=== PATIENT | male | born 1950 | race Hispanic/Latino ===

== ENCOUNTER 2017-10-12 13:13 | Inpatient (IN) | payer MEDICARE, OTHER ==
[~2017-10-12] VITALS: Ht 167.6 cm; Wt 83.9 kg
[2017-10-12 13:31] LABS: BASOPHILS % (AUTO) 0.2 % (0.0-5.0); EOSINOPHILS % (AUTO) 0.1 % (0.0-8.0); HEMATOCRIT 43.9 % (42-54); LYMPHOCYTES % (AUTO) 4.9 % (21.0-51.0); MEAN CORPUSCULAR HEMOGLOBIN 31.8 pg (27.0-33.0); MEAN CORPUSCULAR VOLUME 93.6 fL (79-99); MONOCYTES % (AUTO) 1.1 % (3.0-13.0); NEUTROPHILS % (AUTO) 93.7 % (40.0-77.0); PLATELET COUNT (AUTO) 484 K/uL (130-400); RED BLOOD CELL COUNT(AUTO) 4.69 MIL/uL (4.50-6.20); RED CELL DISTRIBUTION WIDTH 13.3 % (11.0-15.5); WHITE BLOOD COUNT (AUTO) 24.8 K/uL (4.8-10.8)
[2017-10-12 13:40] LABS: CARBON DIOXIDE 27 mmol/L (21-32); CHLORIDE 98 mmol/L (101-111); CREATININE 0.6 mg/dL (0.5-1.5); GLOMERULAR FILTR. RATE CALC 143 mL/min (>60); GLUCOSE,RANDOM 246 mg/dL (70-105); POTASSIUM 4.7 mmol/L (3.5-5.1); SODIUM SERUM 132 mmol/L (136-145); UREA NITROGEN, BLOOD 18 mg/dL (7-18)
[2017-10-12 14:16] LABS: ALANINE AMINOTRANSFERASE 282 U/L (12-78); ALBUMIN 2.4 g/dL (3.5-5.0); ASPARTATE AMINOTRANSFERASE 168 U/L (10-37); BILIRUBIN,TOTAL 0.5 mg/dL (0.2-1.0); CREATINE KINASE MB 267.3 ng/mL (0.5-3.6); MYOGLOBIN 3817 ng/mL (10-92); TOTAL PROTEIN, SERUM 7.5 g/dL (6.0-8.3); TROPONIN I < 0.04 ng/mL (0.00-0.06)
[2017-10-12 14:17] LABS: CREATINE KINASE, TOTAL 4238 U/L (21-232)
[2017-10-12] MEDS ORDERED: CEFTRIAXONE SODIUM 2 GM VIAL ONE ×2 (14:47→14:50)
[2017-10-12] MEDS ORDERED: SODIUM CHLORIDE 0.9% 100 ML IV ONE ×2 (14:47→14:50)
[2017-10-12 15:21] LABS: APPEARANCE,URINE Cloudy (CLEAR); BILIRUBIN,URINE Negative (NEGATIVE); COLOR,URINE Dark Yellow (YELLOW); GLUCOSE, URINE (UA) TRACE mg/dL (NEGATIVE); KETONES,URINE Trace mg/dL (NEGATIVE); LEUKOCYTE ESTERASE ,URINE Negative (NEGATIVE); NITRATE,URINE Negative (NEGATIVE); OCCULT BLOOD,URINE Moderate (NEGATIVE); PROTEIN,URINE POS 1+ (NEGATIVE)
[2017-10-12 15:26] LABS: INR 1.04 (0.85-1.15); PROTHROMBIN TIME 10.7 SEC (9.6-11.6)
[2017-10-12 15:44] LABS: BACTERIA,URINE Few /HPF (None Seen); CALCIUM OXALATE CRYSTALS,UR Few /LPF (None Seen); MUCUS,URINE Rare LPF (None Seen); RBC,URINE None Seen /HPF (0-1); WBC,URINE 0-1 /HPF (0-1)
[2017-10-12 17:30] VITALS: BP 128/67
[2017-10-12] MEDS ORDERED: FLUT16H NS (17:49)
[2017-10-12] MEDS ORDERED: DOCU100C33 PO (17:49)
[2017-10-12] MEDS ORDERED: FISH1CAP20 PO (17:49)
[2017-10-12] MEDS ORDERED: ATOR40TA69 PO (17:49)
[2017-10-12] MEDS ORDERED: CHOL100018 PO (17:49)
[2017-10-12] MEDS ORDERED: TAMS0.4C32 PO (17:49)
[2017-10-12] MEDS ORDERED: TICA90TA PO (17:49)
[2017-10-12] MEDS ORDERED: LACT10SO8 PO (17:49)
[2017-10-12] MEDS ORDERED: OMEP20CA10 PO (17:49)
[2017-10-12] MEDS ORDERED: METF10004 PO (17:49)
[2017-10-12] MEDS ORDERED: RAMI5CAP21 PO (17:49)
[2017-10-12] MEDS ORDERED: INSU100V12 SQ (17:49)
[2017-10-12] MEDS ORDERED: CLOT15CR62 TP (17:49)
[2017-10-12] MEDS ORDERED: POTASSIUM CHLORIDE 10% ELIXIR 20 MEQ/15 ML UDCUP PO PRN (19:30)
[2017-10-12] MEDS ORDERED: POTASSIUM CHLORIDE 20MEQ/100ML 100 ML IV PRN (19:30)
[2017-10-12] MEDS ORDERED: ONDANSETRON HCL MDV 20ML 2 MG/ML VIAL IVP PRN (19:30)
[2017-10-12] MEDS ORDERED: LIDOCAINE HCL-MPF 1% 2ML VIAL IJ PRN (19:30)
[2017-10-12] MEDS ORDERED: POTASSIUM CHLORIDE 20 MEQ ERTAB PO PRN (19:30)
[2017-10-12] MEDS ORDERED: ACETAMINOPHEN 325 MG TAB PO PRN ×2 (19:30)
[2017-10-12 19:55] VITALS: BP 112/51
[2017-10-12] MEDS: DOXYCYCLINE 100MG+NS 250ML 250 ML IV SCH (22:45)
[2017-10-12] MEDS ORDERED: LACTULOSE 20 GM/30 ML UDCUP PO PRN (23:00)
[2017-10-12 23:27] VITALS: BP 119/60
[2017-10-12] MEDS: ZOLPIDEM TARTRATE 5 MG TAB PO PRN (23:28)
[2017-10-13 03:15] VITALS: BP 130/66
[2017-10-13 05:35] LABS: HEMATOCRIT 39.5 % (42-54); MEAN CORPUSCULAR HEMOGLOBIN 31.7 pg (27.0-33.0); MEAN CORPUSCULAR HGB CONC 34.1 g/dL (32.0-36.0); MEAN CORPUSCULAR VOLUME 93.2 fL (79-99); PLATELET COUNT (AUTO) 493 K/uL (130-400); RED BLOOD CELL COUNT(AUTO) 4.24 MIL/uL (4.50-6.20); RED CELL DISTRIBUTION WIDTH 13.3 % (11.0-15.5); WHITE BLOOD COUNT (AUTO) 22.1 K/uL (4.8-10.8)
[2017-10-13 05:42] LABS: BAND NEUTROPHILS % (MANUAL) 5 % (0-2); EOSINOPHILS % (MANUAL) 1 % (1-6); LYMPHOCYTES % (MANUAL) 5 % (22-44); MAN.DIFF COMMENT-IMPRESSION MANUAL DIFFERENTIAL; METAMYELOCYTES % 1 % (0-0); MONOCYTES % (MANUAL) 3 % (2-9); SEGMENTED NEUTROPHILS % 85 % (40-70)
[2017-10-13 05:43] LABS: PLATELET MORPHOLOGY COMMENT SLIGHT INCREASED
[2017-10-13 06:05] LABS: CREATININE 0.6 mg/dL (0.5-1.5); POTASSIUM 4.2 mmol/L (3.5-5.1)
[2017-10-13 08:03] VITALS: BP 142/79
[2017-10-13] MEDS: SODIUM CHLORIDE 0.9% 1000ML 1,000 ML IV SCH ×4 (08:14→23:30)
[2017-10-13] MEDS ORDERED: NITROGLYCERIN 0.4 MG SL TAB SL PRN (09:30)
[2017-10-13] MEDS ORDERED: ACETAMINOPHEN-CODEINE 300/30MG TAB PO PRN (09:30)
[2017-10-13] MEDS ORDERED: ACETAMINOPHEN 325 MG TAB PO PRN ×2 (09:30)
[2017-10-13] MEDS ORDERED: GUAIFENESIN-DM 200/20 MG 10 ML PO PRN (09:30)
[2017-10-13] MEDS ORDERED: ONDANSETRON HCL 4 MG/2 ML VIAL IV PRN (09:30)
[2017-10-13] MEDS ORDERED: MORPHINE SULFATE 2 MG/ML 1ML SYG IV PRN (09:30)
[2017-10-13] MEDS ORDERED: MAG HYDROX/AL HYDROX/SIMETH ES 30 ML SUSP UDCUP PO PRN (09:30)
[2017-10-13 09:44] LABS: RETICULOCYTE % (AUTO) 0.84 % (0.42-2.23)
[2017-10-13] MEDS: DOXYCYCLINE 100MG+NS 250ML 250 ML IV SCH ×2 (09:59→23:31)
[2017-10-13 10:04] LABS: THYROID STIMULATING HORMONE 1.91 uIU/mL (0.36-3.74)
[2017-10-13 10:22] LABS: % IRON SATURATION 25.8 % (30-44)
[2017-10-13 11:36] VITALS: BP 125/65
[2017-10-13] MEDS ORDERED: DEXTROSE 50%-WATER 50 ML DISP.SYRIN IV PRN (12:00)
[2017-10-13] MEDS ORDERED: GLUCAGON 1MG KIT 1 MG ML IM PRN (12:00)
[2017-10-13] MEDS: FLUTICASONE PROPIONATE 50MCG/SPRAY 16 GM BOTTLE NS SCH (12:21)
[2017-10-13] MEDS: INSULIN HUMULIN R 100 UNIT/ML 3ML SQ SCH ×3 (12:27→21:00)
[2017-10-13 16:00] VITALS: BP 124/70
[2017-10-13] MEDS ORDERED: INSULIN HUMULIN R 100 UNIT/ML 3ML SQ SCH (16:30)
[2017-10-13] MEDS: TICAGRELOR 90 MG TABLET PO SCH (19:59)
[2017-10-13] MEDS: DOCUSATE SODIUM 100 MG CAP PO SCH (19:59)
[2017-10-13] MEDS: FAMOTIDINE 20MG TAB 20 MG TAB PO SCH (19:59)
[2017-10-13 20:00] VITALS: BP 122/68
[2017-10-13 23:55] VITALS: BP 150/75
[2017-10-14 04:00] VITALS: BP 140/78
[2017-10-14 05:24] LABS: MEAN CORPUSCULAR HEMOGLOBIN 32.3 pg (27.0-33.0); MEAN CORPUSCULAR HGB CONC 34.7 g/dL (32.0-36.0); PLATELET COUNT (AUTO) 506 K/uL (130-400); RED BLOOD CELL COUNT(AUTO) 4.08 MIL/uL (4.50-6.20); RED CELL DISTRIBUTION WIDTH 13.4 % (11.0-15.5); WHITE BLOOD COUNT (AUTO) 22.6 K/uL (4.8-10.8)
[2017-10-14 05:44] LABS: BAND NEUTROPHILS % (MANUAL) 4 % (0-2); LYMPHOCYTES % (MANUAL) 4 % (22-44); MONOCYTES % (MANUAL) 1 % (2-9); SEGMENTED NEUTROPHILS % 91 % (40-70)
[2017-10-14 05:45] LABS: MAN.DIFF COMMENT-IMPRESSION MANUAL DIFFERENTIAL; PLATELET MORPHOLOGY COMMENT SLIGHT INCREASED
[2017-10-14 05:54] LABS: ALBUMIN 1.8 g/dL (3.5-5.0); BILIRUBIN,TOTAL 0.5 mg/dL (0.2-1.0); CREATININE 0.4 mg/dL (0.5-1.5); POTASSIUM 3.7 mmol/L (3.5-5.1); TOTAL PROTEIN, SERUM 5.8 g/dL (6.0-8.3)
[2017-10-14] MEDS: INSULIN HUMULIN R 100 UNIT/ML 3ML SQ SCH ×4 (06:37→21:08)
[2017-10-14 07:58] VITALS: BP 118/57
[2017-10-14 08:19] LABS: HEPATITIS A ANTIBODY IGM Negative (Negative); HEPATITIS B CORE IGM Negative (Negative); HEPATITIS Bs ANTIGEN SCREEN P Negative (Negative)
[2017-10-14] MEDS: FAMOTIDINE 20MG TAB 20 MG TAB PO SCH ×2 (08:42→21:00)
[2017-10-14] MEDS: FLUTICASONE PROPIONATE 50MCG/SPRAY 16 GM BOTTLE NS SCH (08:43)
[2017-10-14] MEDS: LISINOPRIL 20 MG TABLET PO SCH (08:43)
[2017-10-14] MEDS: DOCUSATE SODIUM 100 MG CAP PO SCH ×2 (08:43→21:00)
[2017-10-14] MEDS ORDERED: FLUTICASONE PROPIONATE 50MCG/SPRAY 16 GM BOTTLE NS SCH (09:00)
[2017-10-14] MEDS: TICAGRELOR 90 MG TABLET PO SCH (09:00)
[2017-10-14] MEDS: FISH OIL 1000 MG/CAP PO SCH (09:02)
[2017-10-14] MEDS: TAMSULOSIN HCL 0.4 MG CAP.ER.24H PO SCH (09:02)
[2017-10-14] MEDS: DOXYCYCLINE 100MG+NS 250ML 250 ML IV SCH ×2 (09:02→21:00)
[2017-10-14] MEDS: INSULIN GLARGINE 100 UNITS/ML 10 ML VIAL SQ SCH (09:10)
[2017-10-14] MEDS ORDERED: METHYLPREDNISOLONE SOD SUCC 125MG/2ML VIAL IVP SCH ×2 (11:00→18:00)
[2017-10-14] MEDS: SODIUM CHLORIDE 0.9% 1000ML 1,000 ML IV SCH ×2 (11:38→15:29)
[2017-10-14 11:50] VITALS: BP 128/77
[2017-10-14 16:35] VITALS: BP 130/74
[2017-10-14 20:00] VITALS: BP 142/82
[2017-10-14] MEDS: METHYLPREDNISOLONE SOD SUCC 125MG/2ML VIAL IVP SCH (23:39)
[2017-10-14 23:51] VITALS: BP 128/74
[2017-10-15 04:00] VITALS: BP 146/86
[2017-10-15 05:03] LABS: HEMATOCRIT 41.2 % (42-54); MEAN CORPUSCULAR HEMOGLOBIN 31.5 pg (27.0-33.0); MEAN CORPUSCULAR HGB CONC 33.9 g/dL (32.0-36.0); MEAN CORPUSCULAR VOLUME 92.6 fL (79-99); PLATELET COUNT (AUTO) 534 K/uL (130-400); RED BLOOD CELL COUNT(AUTO) 4.45 MIL/uL (4.50-6.20); RED CELL DISTRIBUTION WIDTH 13.3 % (11.0-15.5); WHITE BLOOD COUNT (AUTO) 17.8 K/uL (4.8-10.8)
[2017-10-15 05:30] LABS: CREATININE 0.5 mg/dL (0.5-1.5); POTASSIUM 4.2 mmol/L (3.5-5.1)
[2017-10-15] MEDS: METHYLPREDNISOLONE SOD SUCC 125MG/2ML VIAL IVP SCH ×4 (05:33→23:21)
[2017-10-15] MEDS: INSULIN HUMULIN R 100 UNIT/ML 3ML SQ SCH ×4 (05:40→20:13)
[2017-10-15 07:30] VITALS: BP 143/75
[2017-10-15] MEDS: LISINOPRIL 20 MG TABLET PO SCH ×2 (09:00→12:16)
[2017-10-15] MEDS: FISH OIL 1000 MG/CAP PO SCH ×2 (09:00→12:15)
[2017-10-15] MEDS: TAMSULOSIN HCL 0.4 MG CAP.ER.24H PO SCH ×2 (09:00→12:16)
[2017-10-15] MEDS: FAMOTIDINE 20MG TAB 20 MG TAB PO SCH ×3 (09:00→20:38)
[2017-10-15] MEDS: DOCUSATE SODIUM 100 MG CAP PO SCH ×3 (09:00→20:38)
[2017-10-15] MEDS: DOXYCYCLINE 100MG+NS 250ML 250 ML IV SCH ×2 (09:50→22:41)
[2017-10-15] MEDS: INSULIN GLARGINE 100 UNITS/ML 10 ML VIAL SQ SCH (09:55)
[2017-10-15] MEDS: FLUTICASONE PROPIONATE 50MCG/SPRAY 16 GM BOTTLE NS SCH (09:56)
[2017-10-15 11:00] VITALS: BP 149/79
[2017-10-15 16:00] VITALS: BP 153/74
[2017-10-15 19:44] VITALS: BP 142/81
[2017-10-15] MEDS: ZOLPIDEM TARTRATE 5 MG TAB PO PRN (20:41)
[2017-10-15] MEDS: SODIUM CHLORIDE 0.9% 1000ML 1,000 ML IV SCH (20:42)
[2017-10-15 23:45] VITALS: BP 140/73
[2017-10-16 04:00] VITALS: BP 144/78
[2017-10-16] MEDS: SODIUM CHLORIDE 0.9% 1000ML 1,000 ML IV SCH ×2 (05:38→22:57)
[2017-10-16] MEDS: INSULIN HUMULIN R 100 UNIT/ML 3ML SQ SCH ×4 (05:51→20:53)
[2017-10-16 06:02] LABS: HEMATOCRIT 42.6 % (42-54); MEAN CORPUSCULAR HEMOGLOBIN 31.5 pg (27.0-33.0); MEAN CORPUSCULAR VOLUME 92.8 fL (79-99); PLATELET COUNT (AUTO) 568 K/uL (130-400); RED BLOOD CELL COUNT(AUTO) 4.59 MIL/uL (4.50-6.20); RED CELL DISTRIBUTION WIDTH 13.4 % (11.0-15.5); WHITE BLOOD COUNT (AUTO) 18.6 K/uL (4.8-10.8)
[2017-10-16] MEDS: METHYLPREDNISOLONE SOD SUCC 125MG/2ML VIAL IVP SCH ×4 (06:03→23:23)
[2017-10-16 06:47] LABS: CREATININE 0.4 mg/dL (0.5-1.5); POTASSIUM 4.1 mmol/L (3.5-5.1)
[2017-10-16 08:00] VITALS: BP 143/86
[2017-10-16] MEDS: INSULIN GLARGINE 100 UNITS/ML 10 ML VIAL SQ SCH (08:50)
[2017-10-16] MEDS: DOCUSATE SODIUM 100 MG CAP PO SCH ×2 (08:56→20:52)
[2017-10-16] MEDS: TAMSULOSIN HCL 0.4 MG CAP.ER.24H PO SCH (08:56)
[2017-10-16] MEDS: LISINOPRIL 20 MG TABLET PO SCH (08:56)
[2017-10-16] MEDS: FLUTICASONE PROPIONATE 50MCG/SPRAY 16 GM BOTTLE NS SCH (08:56)
[2017-10-16] MEDS: FAMOTIDINE 20MG TAB 20 MG TAB PO SCH ×2 (08:56→20:52)
[2017-10-16] MEDS: FISH OIL 1000 MG/CAP PO SCH (08:56)
[2017-10-16] MEDS: LACTULOSE 20 GM/30 ML UDCUP PO PRN (08:59)
[2017-10-16 11:49] VITALS: BP 136/76
[2017-10-16] MEDS: DOXYCYCLINE 100MG+NS 250ML 250 ML IV SCH ×2 (11:58→22:56)
[2017-10-16 16:00] VITALS: BP 147/86
[2017-10-16 20:00] VITALS: BP 160/80
[2017-10-16 23:40] VITALS: BP 164/95
[2017-10-16] MEDS: HYDRALAZINE HCL 20 MG/ML VIAL IV PRN (23:40)
[2017-10-17 04:00] VITALS: BP 144/81
[2017-10-17] MEDS: METHYLPREDNISOLONE SOD SUCC 125MG/2ML VIAL IVP SCH ×4 (05:38→22:47)
[2017-10-17 06:16] LABS: ALBUMIN 1.8 g/dL (3.5-5.0); BILIRUBIN,TOTAL 0.2 mg/dL (0.2-1.0); CREATININE 0.4 mg/dL (0.5-1.5); HIGH SENSITIVITY CRP 21.12 mg/L (0.0-3.0); POTASSIUM 3.7 mmol/L (3.5-5.1); TOTAL PROTEIN, SERUM 5.7 g/dL (6.0-8.3)
[2017-10-17] MEDS: INSULIN HUMULIN R 100 UNIT/ML 3ML SQ SCH ×4 (06:32→21:56)
[2017-10-17 07:00] VITALS: BP 147/82
[2017-10-17] MEDS: TICAGRELOR 90 MG TABLET PO SCH (09:00)
[2017-10-17] MEDS: DOCUSATE SODIUM 100 MG CAP PO SCH ×2 (10:12→21:58)
[2017-10-17] MEDS: LISINOPRIL 20 MG TABLET PO SCH (10:12)
[2017-10-17] MEDS: FLUTICASONE PROPIONATE 50MCG/SPRAY 16 GM BOTTLE NS SCH (10:12)
[2017-10-17] MEDS: FAMOTIDINE 20MG TAB 20 MG TAB PO SCH ×2 (10:12→21:58)
[2017-10-17] MEDS: TAMSULOSIN HCL 0.4 MG CAP.ER.24H PO SCH (10:12)
[2017-10-17] MEDS: FISH OIL 1000 MG/CAP PO SCH (10:12)
[2017-10-17] MEDS: INSULIN GLARGINE 100 UNITS/ML 10 ML VIAL SQ SCH (10:13)
[2017-10-17] MEDS: DOXYCYCLINE 100MG+NS 250ML 250 ML IV SCH ×2 (10:14→21:59)
[2017-10-17 11:00] VITALS: BP 142/79
[2017-10-17] MEDS: SODIUM CHLORIDE 0.9% 1000ML 1,000 ML IV SCH (12:00)
[2017-10-17 16:00] VITALS: BP 147/93
[2017-10-17 19:40] VITALS: BP 150/82
[2017-10-17 23:55] VITALS: BP 157/87
[2017-10-18] VITALS (18 sets, daily range): BP systolic 142–178; BP diastolic 77–99
[2017-10-18] MEDS: SODIUM CHLORIDE 0.9% 1000ML 1,000 ML IV SCH ×2 (02:10→10:54)
[2017-10-18] MEDS: METHYLPREDNISOLONE SOD SUCC 125MG/2ML VIAL IVP SCH ×4 (06:13→22:23)
[2017-10-18] MEDS: INSULIN HUMULIN R 100 UNIT/ML 3ML SQ SCH ×4 (06:14→21:00)
[2017-10-18] MEDS: INSULIN GLARGINE 100 UNITS/ML 10 ML VIAL SQ SCH (08:00)
[2017-10-18] MEDS: LISINOPRIL 20 MG TABLET PO SCH (09:00)
[2017-10-18] MEDS: FAMOTIDINE 20MG TAB 20 MG TAB PO SCH ×2 (09:00→21:10)
[2017-10-18] MEDS: DOCUSATE SODIUM 100 MG CAP PO SCH ×2 (09:00→21:10)
[2017-10-18] MEDS: TAMSULOSIN HCL 0.4 MG CAP.ER.24H PO SCH (09:00)
[2017-10-18] MEDS: FISH OIL 1000 MG/CAP PO SCH (09:00)
[2017-10-18] MEDS: DOXYCYCLINE 100MG+NS 250ML 250 ML IV SCH ×2 (11:06→21:10)
[2017-10-18] MEDS ORDERED: PROPOFOL 10 MG/ML 20ML VIAL IV ONE (11:19)
[2017-10-18] MEDS ORDERED: FENTANYL CITRATE PF 50 MCG/1 ML 2ML VIAL ONE (11:21)
[2017-10-18] MEDS ORDERED: LIDOCAINE HCL 1% 20 ML VIAL ONE (11:32)
[2017-10-18] MEDS ORDERED: BUPIVACAINE/PF 0.25% 30ML VIAL IJ ONE (11:32)
[2017-10-18 13:24] LABS: HEMATOCRIT 44.6 % (42-54); MEAN CORPUSCULAR HGB CONC 34.4 g/dL (32.0-36.0); MEAN CORPUSCULAR VOLUME 93.1 fL (79-99); PLATELET COUNT (AUTO) 557 K/uL (130-400); RED CELL DISTRIBUTION WIDTH 13.5 % (11.0-15.5); WHITE BLOOD COUNT (AUTO) 16.1 K/uL (4.8-10.8)
[2017-10-18] MEDS: FLUTICASONE PROPIONATE 50MCG/SPRAY 16 GM BOTTLE NS SCH (17:03)
[2017-10-19 04:05] VITALS: BP 148/81
[2017-10-19] MEDS: METHYLPREDNISOLONE SOD SUCC 125MG/2ML VIAL IVP SCH ×4 (05:21→23:50)
[2017-10-19] MEDS: INSULIN HUMULIN R 100 UNIT/ML 3ML SQ SCH ×4 (06:35→21:27)
[2017-10-19 09:17] VITALS: BP 149/87
[2017-10-19 12:13] VITALS: BP 137/80
[2017-10-19] MEDS: TAMSULOSIN HCL 0.4 MG CAP.ER.24H PO SCH (13:22)
[2017-10-19] MEDS: DOXYCYCLINE 100MG+NS 250ML 250 ML IV SCH ×2 (13:22→23:50)
[2017-10-19] MEDS: FISH OIL 1000 MG/CAP PO SCH (13:22)
[2017-10-19] MEDS: DOCUSATE SODIUM 100 MG CAP PO SCH ×2 (13:22→21:25)
[2017-10-19] MEDS: FLUTICASONE PROPIONATE 50MCG/SPRAY 16 GM BOTTLE NS SCH (13:23)
[2017-10-19] MEDS: LISINOPRIL 20 MG TABLET PO SCH (13:23)
[2017-10-19] MEDS: FAMOTIDINE 20MG TAB 20 MG TAB PO SCH ×2 (13:23→21:25)
[2017-10-19] MEDS: INSULIN GLARGINE 100 UNITS/ML 10 ML VIAL SQ SCH (13:29)
[2017-10-19 16:00] VITALS: BP 139/82
[2017-10-19 20:00] VITALS: BP 138/73
[2017-10-19] MEDS: TICAGRELOR 90 MG TABLET PO SCH (22:54)
[2017-10-20] VITALS (7 sets, daily range): BP systolic 113–157; BP diastolic 62–96
[2017-10-20] MEDS: METHYLPREDNISOLONE SOD SUCC 125MG/2ML VIAL IVP SCH ×4 (06:09→22:51)
[2017-10-20] MEDS: INSULIN HUMULIN R 100 UNIT/ML 3ML SQ SCH ×4 (07:55→23:14)
[2017-10-20] MEDS: FLUTICASONE PROPIONATE 50MCG/SPRAY 16 GM BOTTLE NS SCH (09:00)
[2017-10-20] MEDS: INSULIN GLARGINE 100 UNITS/ML 10 ML VIAL SQ SCH (09:32)
[2017-10-20] MEDS: FISH OIL 1000 MG/CAP PO SCH (10:27)
[2017-10-20] MEDS: DOCUSATE SODIUM 100 MG CAP PO SCH ×2 (10:27→20:25)
[2017-10-20] MEDS: TAMSULOSIN HCL 0.4 MG CAP.ER.24H PO SCH (10:27)
[2017-10-20] MEDS: LISINOPRIL 20 MG TABLET PO SCH (10:27)
[2017-10-20] MEDS: FAMOTIDINE 20MG TAB 20 MG TAB PO SCH ×2 (10:27→20:25)
[2017-10-20] MEDS: TICAGRELOR 90 MG TABLET PO SCH ×2 (10:27→20:25)
[2017-10-20] MEDS: DOXYCYCLINE 100MG+NS 250ML 250 ML IV SCH ×2 (11:27→22:51)
[2017-10-20 11:40] LABS: CREATININE 0.6 mg/dL (0.5-1.5); POTASSIUM 4.2 mmol/L (3.5-5.1)
[2017-10-20] MEDS: LACTULOSE 20 GM/30 ML UDCUP PO PRN (20:25)
[2017-10-21 04:00] VITALS: BP 144/78
[2017-10-21] MEDS: INSULIN HUMULIN R 100 UNIT/ML 3ML SQ SCH ×4 (06:02→23:46)
[2017-10-21] MEDS: METHYLPREDNISOLONE SOD SUCC 125MG/2ML VIAL IVP SCH ×3 (07:22→17:23)
[2017-10-21 08:35] VITALS: BP 133/59
[2017-10-21] MEDS: INSULIN GLARGINE 100 UNITS/ML 10 ML VIAL SQ SCH (08:43)
[2017-10-21] MEDS: FAMOTIDINE 20MG TAB 20 MG TAB PO SCH ×2 (09:00→21:51)
[2017-10-21] MEDS: FLUTICASONE PROPIONATE 50MCG/SPRAY 16 GM BOTTLE NS SCH (09:00)
[2017-10-21] MEDS: TAMSULOSIN HCL 0.4 MG CAP.ER.24H PO SCH (09:01)
[2017-10-21] MEDS: DOCUSATE SODIUM 100 MG CAP PO SCH ×2 (09:01→21:51)
[2017-10-21] MEDS: FISH OIL 1000 MG/CAP PO SCH (09:01)
[2017-10-21] MEDS: LISINOPRIL 20 MG TABLET PO SCH (09:01)
[2017-10-21] MEDS: TICAGRELOR 90 MG TABLET PO SCH ×2 (09:01→21:51)
[2017-10-21] MEDS: LACTULOSE 20 GM/30 ML UDCUP PO PRN ×2 (09:02→21:51)
[2017-10-21] MEDS: DOXYCYCLINE 100MG+NS 250ML 250 ML IV SCH ×2 (11:17→21:51)
[2017-10-21 11:37] VITALS: BP 159/67
[2017-10-21 15:49] VITALS: BP 161/88
[2017-10-21 20:00] VITALS: BP 140/79
[2017-10-22] VITALS: BP 154/88
[2017-10-22] MEDS: METHYLPREDNISOLONE SOD SUCC 125MG/2ML VIAL IVP SCH ×4 (01:04→17:55)
[2017-10-22] MEDS ORDERED: BISACODYL 10 MG SUPP.RECT RC ONE (01:15)
[2017-10-22 04:00] VITALS: BP 163/86
[2017-10-22] MEDS: INSULIN HUMULIN R 100 UNIT/ML 3ML SQ SCH ×4 (06:27→21:49)
[2017-10-22] MEDS: HYDRALAZINE HCL 20 MG/ML VIAL IV PRN (06:42)
[2017-10-22 07:58] VITALS: BP 159/86
[2017-10-22] MEDS: TAMSULOSIN HCL 0.4 MG CAP.ER.24H PO SCH (08:02)
[2017-10-22] MEDS: FISH OIL 1000 MG/CAP PO SCH (08:02)
[2017-10-22] MEDS: FAMOTIDINE 20MG TAB 20 MG TAB PO SCH ×2 (08:02→21:39)
[2017-10-22] MEDS: LISINOPRIL 20 MG TABLET PO SCH (08:02)
[2017-10-22] MEDS: DOCUSATE SODIUM 100 MG CAP PO SCH ×2 (08:02→21:39)
[2017-10-22] MEDS: LACTULOSE 20 GM/30 ML UDCUP PO PRN (08:03)
[2017-10-22] MEDS: INSULIN GLARGINE 100 UNITS/ML 10 ML VIAL SQ SCH (08:03)
[2017-10-22] MEDS: TICAGRELOR 90 MG TABLET PO SCH ×2 (08:50→21:49)
[2017-10-22] MEDS: FLUTICASONE PROPIONATE 50MCG/SPRAY 16 GM BOTTLE NS SCH (08:51)
[2017-10-22] MEDS: DOXYCYCLINE 100MG+NS 250ML 250 ML IV SCH (10:04)
[2017-10-22 11:25] VITALS: BP 144/77
[2017-10-22 16:50] VITALS: BP 140/82
[2017-10-22 23:50] VITALS: BP 143/72
== END 2017-10-23 01:15 | DRG 500 ==
LOC: EDH 13:13 → EDHIP 16:00 → 4CH 17:39
PROVIDERS: ADMIT Internal Medicine; ATTEND Internal Medicine
PROC: 0KBR0ZX Excision of Left Upper Leg Muscle, Open Approach, Diagnostic (ICD-10-PCS; principal; 2017-10-18 11:20)
DX: M60.9 Myositis, unspecified (principal); E43 Unspecified severe protein-calorie malnutrition; E11.40 Type 2 diabetes mellitus with diabetic neuropathy, unspecified; E11.649 Type 2 diabetes mellitus with hypoglycemia without coma; M62.82 Rhabdomyolysis; I69.354 Hemiplegia and hemiparesis following cerebral infarction affecting left non-dominant side; G70.9 Myoneural disorder, unspecified; G30.9 Alzheimer's disease, unspecified; F02.80 Dementia in other diseases classified elsewhere, unspecified severity, without behavioral disturbance, psychotic disturbance, mood disturbance, and anxiety; M19.90 Unspecified osteoarthritis, unspecified site; D72.829 Elevated white blood cell count, unspecified; E11.65 Type 2 diabetes mellitus with hyperglycemia; E78.5 Hyperlipidemia, unspecified; E86.0 Dehydration; I10 Essential (primary) hypertension; M47.9 Spondylosis, unspecified; Z68.29 Body mass index [BMI] 29.0-29.9, adult
CPT/HCPCS: 36415; 70450; 71045; 72125; 72128; 72131; 74230; 76705; 80048; 80053; 80074; 81001; 81206; 82378; 82550; 82553; 82607; 82728; 82746; 82948; 83605; 83874; 83880; 84443; 84484; 85007; 85025; 85027; 85060; 85610; 85730; 86000; 86038; 86141; 86215; 86235; 86334; 87040; 87088; 92610; 92611; 93005; 97039; J0360; J0696; J1815; J2704; J2930; J3010; J3490; J7030